=== PATIENT | female | born 1970 | race Caucasian/White ===

== ENCOUNTER 2018-09-04 11:43 | Inpatient (IN) | payer OTHER ==
[2018-09-04 12:26] VITALS: BMI 23.6
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
[2018-09-04] MEDS ORDERED: BISMUTH SUBSALICYLATE 524 MG/30 ML UD PO PRN (15:02)
[2018-09-04] MEDS ORDERED: ACETAMINOPHEN 325 MG TABLET (FP) PO PRN ×2 (15:02)
[2018-09-04] MEDS ORDERED: MAGNESIUM CITRATE 300 ML BOTTLE PO PRN (15:02)
[2018-09-04] MEDS ORDERED: MELATONIN 5 MG TABLETS PO PRN (15:02)
[2018-09-04] MEDS ORDERED: METHOCARBAMOL 500 MG TABLET PO PRN (15:02)
[2018-09-04] MEDS ORDERED: MAGNESIUM HYDROX 2400MG/30ML ORAL SUSPENSION 30 ML CUP PO PRN (15:02)
[2018-09-04] MEDS ORDERED: hydrOXYzine PAMOATE 25 MG CAPSULE (FP) PO PRN (15:02)
[2018-09-04] MEDS ORDERED: MAG HYDROX/AL HYDROX/SIMETH 30 ML UNIT-DOSE CUP PO PRN (15:02)
[2018-09-04] MEDS ORDERED: cloNIDine HCL 0.1 MG TABLET PO PRN (15:02)
[2018-09-04] MEDS ORDERED: chlordiazePOXIDE HCL 25 MG CAPSULE PO PRN (15:02)
[2018-09-04] MEDS ORDERED: METHADONE HCL 10 MG TABLET (FOR DETOX USE ONLY) PO ONE ×2 (16:00→23:00)
[2018-09-04 20:25] LABS: EPI CELLS 6.7 /HPF (0-5/HPF); HYALINE CASTS 10 /lpf (0-8); PH,URINE 5.5 (5.0-8.0); URINE APPEARANCE TURBID; URINE BILIRUBIN NEGATIVE (NEGATIVE); URINE COLOR YELLOW; URINE GLUCOSE (UA) NEGATIVE (NEGATIVE); URINE KETONE NEGATIVE (NEGATIVE); URINE LEUK ESTERASE NEGATIVE (NEGATIVE); URINE NITRITE POSITIVE (NEGATIVE); URINE PROTEIN NEGATIVE (NEGATIVE); URINE WBC 4 /hpf (0-5)
[2018-09-04] MEDS: THIAMINE HCL 100 MG TABLET (FP) PO SCH (22:04)
[2018-09-04] MEDS: chlordiazePOXIDE HCL 25 MG CAPSULE PO SCH (22:04)
[2018-09-04 22:34] LABS: URINE RBC 8.4 /hpf (0-4)
[2018-09-04 22:41] LABS: URINE CRYSTALS FEW CALCIUM OXALATES /hpf
[2018-09-05] MEDS: chlordiazePOXIDE HCL 25 MG CAPSULE PO SCH ×3 (05:26→17:55)
[2018-09-05] MEDS: MENTHOL/PHENOL 1 EACH UD MM PRN ×3 (05:26→22:13)
[2018-09-05] MEDS: IBUPROFEN 400 MG TABLET (FP) PO PRN ×2 (05:27→10:52)
[2018-09-05] MEDS ORDERED: METHADONE HCL 10 MG TABLET (FOR DETOX USE ONLY) PO ONE (10:00)
[2018-09-05] MEDS: PRENATAL VITAMINS W/ FOLIC ACID TABLET (FP) PO SCH (10:47)
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
[2018-09-05 12:29] LABS: HEMOGLOBIN 12.3 GM/dL (10.7-15.3); MCH 26.1 pg (25.7-33.7); MCHC 32.3 g/dl (32.0-36.0); MEAN CELL VOLUME 80.9 fl (80-96); MEAN PLT VOLUME 8.9 fl (7.5-11.1); RDW 13.9 % (11.6-15.6); WHITE BLOOD COUNT 10.8 K/mm3 (4.0-10.0)
[2018-09-05 12:32] LABS: PLATELET COUNT 224 K/MM3 (134-434)
[2018-09-05 12:44] LABS: ALBUMIN 3.4 g/dl (3.4-5.0); BILIRUBIN,TOTAL 0.4 mg/dL (0.2-1); BLOOD UREA NITROGEN 11.2 mg/dL (7-18); CREATININE 0.9 mg/dL (0.55-1.3); POTASSIUM 3.4 mmol/L (3.5-5.1); TOT PROT 6.7 g/dl (6.4-8.2)
[2018-09-05] MEDS ORDERED: NAPROXEN 375 MG TABLET (FP) PO ONE (12:45)
--- NOTE | 2018-09-05 14:41 | PN ---
S Progress Note Note: Results Of admission Labs noted. Start K-Dur for Hypokalemia. Re-Check K level 09/07/2018. Re-Check CBC tomorrow AM for Elevated Admission WBC level. Patient Afebrile at this time. Pablo Sullivan NP
[2018-09-05] MEDS: LIDOCAINE 5% TOPICAL PATCH TP SCH (15:54)
--- NOTE | 2018-09-05 16:08 | PN ---
[facility] Progress Note Note: RESULTS OF X-RAY OF FINGERS OF LEFT HAND NOTED. PATIENT AGAIN REMINDED ABOUT R.I.C.E. PROTOCOL. PATIENT ALSO ADVISED TO FOLLOW-UP WITH [facility] [employer] AFTER DISCHARGE FROM DETOX FOR FURTHER MEDICAL EVALUATION. PATIENT VERBALIZED UNDERSTANDING OF ALL RECOMMENDATIONS. Pablo HAINES NP
[2018-09-05] MEDS: POTASSIUM CHLORIDE TABS 20 MEQ TABLET.ER (FP) PO SCH (17:57)
[2018-09-05] MEDS: THIAMINE HCL 100 MG TABLET (FP) PO SCH (22:09)
[2018-09-05] MEDS: LIDOCAINE PATCH REMOVAL MC SCH (22:10)
[2018-09-05] MEDS: NAPROXEN 375 MG TABLET (FP) PO SCH (22:10)
[2018-09-05] MEDS: chlordiazePOXIDE 5 MG CAPSULE PO SCH (22:11)
[2018-09-05] MEDS: traZODone HCL 50 MG TABLET (FP) PO SCH (22:11)
[2018-09-06] MEDS: chlordiazePOXIDE 5 MG CAPSULE PO SCH ×4 (05:59→22:41)
[2018-09-06] MEDS: MENTHOL/PHENOL 1 EACH UD MM PRN (06:00)
[2018-09-06] MEDS ORDERED: COLLOIDAL OATMEAL 1 BAR EACH TP PRN (09:09)
[2018-09-06] MEDS ORDERED: METHADONE HCL 10 MG TABLET (FOR DETOX USE ONLY) PO ONE (10:00)
[2018-09-06] MEDS: LIDOCAINE 5% TOPICAL PATCH TP SCH (10:30)
[2018-09-06] MEDS: NAPROXEN 375 MG TABLET (FP) PO SCH ×2 (10:30→22:39)
[2018-09-06] MEDS: PRENATAL VITAMINS W/ FOLIC ACID TABLET (FP) PO SCH (10:30)
[2018-09-06] MEDS: POTASSIUM CHLORIDE TABS 20 MEQ TABLET.ER (FP) PO SCH ×2 (10:36→17:48)
[2018-09-06] MEDS ORDERED: LIDOCAINE VISCOUS 2% ORAL/TOP 20 ML UNIT-DOSE CUP MM PRN (13:02)
--- NOTE | 2018-09-06 15:50 | PN ---
S CIWA - CIWA Score Nausea/Vomitin-No Nausea/No Vomiting Muscle Tremors: 3 Anxiety: 4-Mod. Anxious/Guarded Agitation: 2 Paroxysmal Sweats: No Perspiration Orientation: 0-Oriented Tacttile Disturbances: 2-Mild Itch/Numbness/Burn Auditory Disturbances: 0-None Visual Disturbances: 1-Very Mild Sensitivity Headache: 0-None Present CIWA-Ar Total Score: 12 BHS COWS - Scale Resting Pulse: 1= [place] 81-100 Sweatin= No chills or Flushing Restless Observation: 1= Difficult to Sit Still Pupil Size: 0= Normal to Room Light Bone or Joint Aches: 2= Severe Diffuse Aches Runny Nose/ Eye Tearin= None GI Upset > 30mins: 0= None Tremor Observation of Outstretched Hands: 2= Slight Tremor Visible Yawning Observation: 1= 1-2x During Session Anxiety or Irritability: 2=Irritable/Anxious Goose Flesh Skin: 0=Smooth Skin COWS Score: 9 S Progress Note (SOAP) Subjective: Body Aches, Anxious, Tremors. Objective: PATIENT A & O X 3, OBSERVED AMBULATING ON UNIT UNASSISTED. IN NO ACUTE DISTRESS. 09/06/18 15:51 Vital Signs Temperature 96.5 F L 09/06/18 13:23 Pulse Rate 76 09/06/18 13:23 Respiratory Rate 18 09/06/18 13:23 Blood Pressure 127/85 09/06/18 13:23 O2 Sat by Pulse Oximetry (%) Laboratory Tests 09/04/18 09/04/18 09/05/18 15:50 15:50 07:30 WBC RBC Hgb Hct MCV MCH MCHC RDW Plt Count MPV Sodium Potassium Chloride Carbon Dioxide Anion Gap BUN Creatinine Est GFR (CKD-EPI)AfAm Est GFR (CKD-EPI)NonAf Random Glucose Calcium Total Bilirubin AST ALT Alkaline Phosphatase Total Protein Albumin Urine Color Yellow Urine Appearance Turbid Urine pH 5.5 Ur Specific [place] 1.021 Urine Protein Negative Urine Glucose (UA) Negative Urine Ketones Negative Urine Blood 2+ H Urine Nitrite Positive H Urine Bilirubin Negative Urine Urobilinogen 1.0 Ur Leukocyte Esterase Negative Urine WBC (Auto) 4 Urine RBC (Auto) 8.4 Urine Casts (Auto) 10 U Epithel Cells (Auto) 6.7 Urine Crystals (Auto) Few calcium oxalates Urine Bacteria (Auto) 1217.0 POC Urine HCG, Qual Negative RPR Titer HIV 1&2 Antibody Screen Negative HIV P24 Antigen Negative 09/05/18 09/05/18 09/05/18 07:30 07:30 07:30 WBC 10.8 H RBC 4.70 Hgb 12.3 Hct 38.0 MCV 80.9 MCH 26.1 MCHC 32.3 RDW 13.9 Plt Count 224 MPV 8.9 Sodium 143 Potassium 3.4 L Chloride 107 Carbon Dioxide 29 Anion Gap 7 L BUN 11.2 Creatinine 0.9 Est GFR (CKD-EPI)AfAm 88.87 Est GFR (CKD-EPI)NonAf 76.68 Random Glucose 90 Calcium 9.0 Total Bilirubin 0.4 AST 9 L ALT 15 Alkaline Phosphatase 94 Total Protein 6.7 Albumin 3.4 Urine Color Urine Appearance Urine pH Ur Specific [place] Urine Protein Urine Glucose (UA) Urine Ketones Urine Blood Urine Nitrite Urine Bilirubin Urine Urobilinogen Ur Leukocyte Esterase Urine WBC (Auto) Urine RBC (Auto) Urine Casts (Auto) U Epithel Cells (Auto) Urine Crystals (Auto) Urine Bacteria (Auto) POC Urine HCG, Qual RPR Titer Nonreactive HIV 1&2 Antibody Screen HIV P24 Antigen LABS NOTED. REPEAT CBC NOT DONE TODAY ORDERED (UNCERTAIN TO WHY?). WILL RE-ORDER FOR TOMORROW AM. RESULTS OF REPEAT UA PENDING. 09/06/18 15:54 Assessment: 09/06/18 15:51 WITHDRAWAL SYMPTOMS. LEUKOCYTOSIS. HYPOKALEMIA. 09/06/18 15:55 Plan: CONTINUE DETOX. CONTINUE K-DUR FOR LOW POTASSIUM LEVEL NOTED ON DETOX ADMISSION (REPEAT POTASSIUM LEVEL ORDERED FOR TOMORROW AM). INCREASE DAILY PO FLUID / WATER INTAKE.
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
[2018-09-06] MEDS: THIAMINE HCL 100 MG TABLET (FP) PO SCH (22:37)
[2018-09-06] MEDS: traZODone HCL 50 MG TABLET (FP) PO SCH (22:38)
[2018-09-06] MEDS: LIDOCAINE PATCH REMOVAL MC SCH (22:38)
[2018-09-06] MEDS ORDERED: chlordiazePOXIDE HCL 10 MG CAPSULE PO PRN (23:00)
[2018-09-07] MEDS: chlordiazePOXIDE 5 MG CAPSULE PO SCH ×4 (05:41→22:05)
[2018-09-07] MEDS: guaiFENesin 200 MG/10 ML 10 ML UNIT-DOSE CUPS PO PRN ×2 (05:42→13:40)
[2018-09-07 09:58] LABS: BASO % 0.2 % (0-2.0); EOS % 2.5 % (0-4.5); HEMATOCRIT 32.2 % (32.4-45.2); HEMOGLOBIN 10.4 GM/dL (10.7-15.3); LYMPH % 27.4 % (8-40); MCH 26.4 pg (25.7-33.7); MCHC 32.4 g/dl (32.0-36.0); MEAN CELL VOLUME 81.7 fl (80-96); MEAN PLT VOLUME 8.7 fl (7.5-11.1); MONO % 8.5 % (3.8-10.2); NEUT % 61.4 % (42.8-82.8); PLATELET COUNT 163 K/MM3 (134-434); RBC 3.94 M/mm3 (3.60-5.2); RDW 13.7 % (11.6-15.6); WHITE BLOOD COUNT 6.7 K/mm3 (4.0-10.0)
[2018-09-07] MEDS ORDERED: METHADONE HCL 10 MG TABLET (FOR DETOX USE ONLY) PO ONE (10:00)
[2018-09-07] MEDS: PRENATAL VITAMINS W/ FOLIC ACID TABLET (FP) PO SCH (10:18)
[2018-09-07] MEDS: POTASSIUM CHLORIDE TABS 20 MEQ TABLET.ER (FP) PO SCH (10:18)
[2018-09-07] MEDS: NAPROXEN 375 MG TABLET (FP) PO SCH ×2 (10:19→22:05)
[2018-09-07] MEDS: LIDOCAINE 5% TOPICAL PATCH TP SCH (10:21)
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
[2018-09-07 18:53] LABS: PH,URINE 5.5 (5.0-8.0); URINE APPEARANCE CLEAR; URINE BILIRUBIN NEGATIVE (NEGATIVE); URINE COLOR YELLOW; URINE GLUCOSE (UA) NEGATIVE (NEGATIVE); URINE KETONE NEGATIVE (NEGATIVE); URINE LEUK ESTERASE NEGATIVE (NEGATIVE); URINE NITRITE NEGATIVE (NEGATIVE); URINE PROTEIN NEGATIVE (NEGATIVE); URINE UROBILINOGEN 0.2 mg/dL (0.2-1.0)
[2018-09-07] MEDS: MENTHOL/PHENOL 1 EACH UD MM PRN (20:36)
[2018-09-07] MEDS: LIDOCAINE PATCH REMOVAL MC SCH (22:05)
[2018-09-07] MEDS: traZODone HCL 50 MG TABLET (FP) PO SCH (22:05)
[2018-09-07] MEDS: THIAMINE HCL 100 MG TABLET (FP) PO SCH (22:05)
[2018-09-08] MEDS ORDERED: METHADONE HCL 5 MG TABLET (FOR DETOX USE ONLY) PO ONE (06:00)
[2018-09-08] MEDS: MENTHOL/PHENOL 1 EACH UD MM PRN (06:12)
[2018-09-08] MEDS: PRENATAL VITAMINS W/ FOLIC ACID TABLET (FP) PO SCH (10:36)
[2018-09-08] MEDS: NAPROXEN 375 MG TABLET (FP) PO SCH ×2 (10:37→22:05)
[2018-09-08] MEDS: LIDOCAINE 5% TOPICAL PATCH TP SCH (10:37)
[2018-09-08] MEDS: chlordiazePOXIDE 5 MG CAPSULE PO SCH ×2 (10:37→22:06)
--- NOTE | 2018-09-08 13:02 | PN ---
[facility] CIWA - CIWA Score Nausea/Vomitin-No Nausea/No Vomiting Muscle Tremors: 1-None Visible, but [place] Anxiety: 0-No Anxiety, at Ease Agitation: 1-Slight > Activity Paroxysmal Sweats: 2 Orientation: 0-Oriented Tacttile Disturbances: 0-None Auditory Disturbances: 0-None Visual Disturbances: 0-None Headache: 2-Mild CIWA-Ar Total Score: 6 [facility] COWS - Scale Resting Pulse: 0= [place] 80 or Below Sweatin= No chills or Flushing Restless Observation: 0= Sits Still Pupil Size: 0= Normal to Room Light Bone or Joint Aches: 4=Acute Joint/Muscle Pain Runny Nose/ Eye Tearin= None GI Upset > 30mins: 0= None Tremor Observation of Outstretched Hands: 1= Tremor [place], Not Seen Yawning Observation: 0= None Anxiety or Irritability: 1=Feels Anxious/Irritable Goose Flesh Skin: 0=Smooth Skin COWS Score: 6 S Progress Note (SOAP) Subjective: c/o muscle pain and interrupted sleep. Objective: 09/08/18 13:00 Vital Signs 09/08/18 09/08/18 06:26 09:43 Temperature 97.6 F 97.9 F Pulse Rate 77 87 Respiratory 18 19 Rate Blood Pressure 113/63 134/91 Lab Results WBC 6.7 K/mm3 (4.0-10.0) 09/07/18 07:00 RBC 3.94 M/mm3 (3.60-5.2) 09/07/18 07:00 Hgb 10.4 GM/dL (10.7-15.3) L 09/07/18 07:00 Hct 32.2 % (32.4-45.2) L D 09/07/18 07:00 MCV 81.7 fl (80-96) 09/07/18 07:00 MCHC 32.4 g/dl (32.0-36.0) 09/07/18 07:00 RDW 13.7 % (11.6-15.6) 09/07/18 07:00 Plt Count 163 K/MM3 (134-434) D 09/07/18 07:00 Sodium 143 mmol/L (136-145) 09/05/18 07:30 Potassium 3.6 mmol/L (3.5-5.1) 09/07/18 07:00 Chloride 107 mmol/L (98-107) 09/05/18 07:30 Carbon Dioxide 29 mmol/L (21-32) 09/05/18 07:30 Anion Gap 7 MMOL/L (8-16) L 09/05/18 07:30 BUN 11.2 mg/dL (7-18) 09/05/18 07:30 Creatinine 0.9 mg/dL (0.55-1.3) 09/05/18 07:30 Random Glucose 90 mg/dL (74-106) 09/05/18 07:30 Calcium 9.0 mg/dL (8.5-10.1) 09/05/18 07:30 Labs noted. Assessment: 09/08/18 13:00 AOX3, in no acute distress Full ROM, ambulating in the unit. Withdrawal symptoms. Plan: complete detox tonight. for discharge tomorrow.
[2018-09-08] MEDS: LIDOCAINE PATCH REMOVAL MC SCH (22:05)
[2018-09-08] MEDS: THIAMINE HCL 100 MG TABLET (FP) PO SCH (22:05)
[2018-09-08] MEDS: traZODone HCL 50 MG TABLET (FP) PO SCH (22:06)
[2018-09-09 09:12] VITALS: BP 130/75; PULSE 95; TEMP 97.2
[2018-09-09] MEDS: PRENATAL VITAMINS W/ FOLIC ACID TABLET (FP) PO SCH (10:24)
[2018-09-09] MEDS: NAPROXEN 375 MG TABLET (FP) PO SCH (10:24)
[2018-09-09] MEDS: guaiFENesin 200 MG/10 ML 10 ML UNIT-DOSE CUPS PO PRN (10:26)
[2018-09-09] MEDS: MENTHOL/PHENOL 1 EACH UD MM PRN (10:26)
== END 2018-09-09 10:40 | disposition home or self-care (01) | DRG 773 ==
LOC: YASAS 11:43 → Y3N 15:29
PROVIDERS: ADMIT Surgery; ATTEND Surgery
PROC: HZ2ZZZZ Detoxification Services for Substance Abuse Treatment (ICD-10-PCS; principal; 2018-09-04)
DX: F11.23 Opioid dependence with withdrawal (principal); F10.230 Alcohol dependence with withdrawal, uncomplicated; G47.00 Insomnia, unspecified; D64.9 Anemia, unspecified; D72.829 Elevated white blood cell count, unspecified; E87.6 Hypokalemia; T26.01XA Burn of right eyelid and periocular area, initial encounter; X10.0XXA Contact with hot drinks, initial encounter; Y93.9 Activity, unspecified; Y92.239 Unspecified place in hospital as the place of occurrence of the external cause
CPT/HCPCS: 36415; 73140-TC-LT-FY; 80053; 81003; 81025; 84132; 85025; 85027; 86593; 87389

== ENCOUNTER 2018-09-06 19:12 | Emergency (ER) | payer SELFPAY, OTHER | END 2018-09-06 21:24 | disposition home or self-care (01) | LOC: JER 19:12 ==